=== PATIENT | male | born 1945 | race Caucasian/White ===

== ENCOUNTER → 2017-09-06 | Outpatient (CLI) | payer OTHER | LOC: BRMIMAGING 16:27 | PROVIDERS: ATTEND Family Medicine | DX: M41.86 Other forms of scoliosis, lumbar region (principal); M51.36 Other intervertebral disc degeneration, lumbar region; M47.896 Other spondylosis, lumbar region; M89.38 Hypertrophy of bone, other site | CPT/HCPCS: 72100-PO ==